=== PATIENT | female | born 1950 | race Caucasian/White ===

== ENCOUNTER → 2017-09-02 | Outpatient (CLI) | payer MEDICARE ==
--- NOTE | 2017-09-02 17:59 | RADRPT ---
PROCEDURE: US bilateral lower extremity arteries. CLINICAL INDICATION: Bilateral leg pain. Claudication that interferes significantly with the rbob ent's lifestyle. Breast pain and decreased pulses. TECHNIQUE: Multiple longitudinal and transverse images of the bilateral lower extremity arteries w ere obtained with puckett scale, pulsed Doppler, and color Doppler imaging. COMPARISON: No prior studies are available for comparison. FINDINGS: Right MACHINE OPERATOR HOP WORKER:88 cm/sec PSFA:74 cm/sec MSFA:76 cm/sec DSFA:71 cm/sec POP:53 cm/sec DROP HAMMER OPERATOR HELPER:63 cm/sec DPA:21 cm/sec Left MACHINE OPERATOR HOP WORKER:91 cm/sec PSFA:92 cm/sec MSFA:92 cm/sec DSFA:88 cm/sec POP:53 cm/sec DROP HAMMER OPERATOR HELPER:71 cm/sec DPA:26 cm/sec The right ankle-brachial index is 1.3 and the left ankle-brachial index is 1.3. There is normal triphasic flow throughout bilaterally. IMPRESSION: 1. Normal bilateral lower extremity arterial Doppler. RPTAT: QQ .Sukhjinder Real MD, MD Date Time Electronically viewed and signed by .Sukhjinder Real MD, on 09/02/2017 17:59 .R/
== END | disposition home or self-care (01) ==
LOC: VAS 10:22
PROVIDERS: ATTEND Internal Medicine
DX: M79.662 Pain in left lower leg (principal); M79.661 Pain in right lower leg; N64.4 Mastodynia; R09.89 Other specified symptoms and signs involving the circulatory and respiratory systems
CPT/HCPCS: 93922